=== PATIENT | male | born 1985 | race Asian ===

== ENCOUNTER 2018-07-08 12:50 | Emergency (ER) | payer SELFPAY ==
[~2018-07-08] VITALS: Ht 170.2 cm; Wt 76.2 kg
[2018-07-08 12:55] VITALS: Ht 170.2 cm; Wt 76.2 kg
[2018-07-08 14:17] VITALS: BP 125/77
== END 2018-07-08 14:18 | disposition home or self-care (01) ==
LOC: ED 12:50
DX: G57.02 Lesion of sciatic nerve, left lower limb (principal); M54.32 Sciatica, left side
CPT/HCPCS: J2270; Q0162

== ENCOUNTER 2018-07-19 13:15 | Emergency (ER) | payer SELFPAY ==
[~2018-07-19] VITALS: Ht 170.2 cm; Wt 75.7 kg
[2018-07-19 13:46] VITALS: BP 127/83; Ht 170.2 cm; Wt 75.7 kg
== END 2018-07-19 14:42 | disposition left against medical advice (07) ==
LOC: ED 13:15
DX: Z53.21 Procedure and treatment not carried out due to patient leaving prior to being seen by health care provider (principal)